=== PATIENT | female | born 1975 | race Caucasian/White ===

== ENCOUNTER 2021-10-06 19:10 | Emergency (ER) | payer OTHER ==
[2021-10-06 19:58] VITALS: BP 109/72; PULSE 94; TEMP 98; BMI 27.4
[2021-10-06] MEDS ORDERED: CEPHALEXIN 250 MG/5 ML ORAL SUSPENSION PO ONE (21:42)
[2021-10-06] MEDS ORDERED: CEPHALEXIN MONOHYDRATE 500 MG CAPSULE (UD) PO ONE (21:44)
[2021-10-06] MEDS ORDERED: CEPHALEXIN MONOHYDRATE 500 MG CAPSULE (UD) ONE (21:44)
== END 2021-10-06 21:53 | disposition home or self-care (01) ==
LOC: JERFT 19:10 → JER 19:10 → JERFT 21:53
PROC: 0HQFXZZ Repair Right Hand Skin, External Approach (ICD-10-PCS; principal; 2021-10-06)
DX: S61.011A Laceration without foreign body of right thumb without damage to nail, initial encounter (principal); W26.8XXA Contact with other sharp object(s), not elsewhere classified, initial encounter
CPT/HCPCS: 99283-25